=== PATIENT | male | born 1955 | race Caucasian/White ===

== ENCOUNTER → 2018-06-24 | Outpatient (CLI) | payer OTHER ==
[~2018-06-24] VITALS: Ht 177.8 cm; Wt 81.6 kg
[~2018-06-24] MED LIST: FENOFIBRATE160 MG PO; MOBIC15 MG PO; OMEPRAZOLE20 M1 PO
== END | disposition home or self-care (01) ==
LOC: GI 07:09
DX: Z12.11 Encounter for screening for malignant neoplasm of colon (principal); K57.30 Diverticulosis of large intestine without perforation or abscess without bleeding; C90.00 Multiple myeloma not having achieved remission; E78.5 Hyperlipidemia, unspecified; K21.9 Gastro-esophageal reflux disease without esophagitis; Z98.890 Other specified postprocedural states; Z79.899 Other long term (current) drug therapy; Z98.52 Vasectomy status
CPT/HCPCS: 62110; 62900